=== PATIENT | female | born 1970 ===

== ENCOUNTER 2021-03-18 12:24 | Outpatient (REF) | payer SELFPAY ==
[2021-03-18 20:45] LABS: HCT 33.8 % (36.0-46.0); MCH 30.1 pg (27.0-33.0); MCHC 32.5 % (32.0-36.0); MCV 92.3 fL (80-95); Platelet Count 443 10^3/uL (130-400); RBC 3.66 10^6/uL (3.93-5.22); RDW 12.3 % (11.7-14.6); RDW-SD 41.9 fL; WBC 18.92 10^3/uL (4.4-10.8)
[2021-03-18 21:07] LABS: ALT 17 U/L (14-59); AST 12 U/L (15-37); Albumin 3.5 g/dL (3.4-5.0); Alkaline Phosphatase 56 U/L (46-116); Anion Gap 10.2 mmol/L (3-11); BUN 12 mg/dL (7-18); Bilirubin, Total 0.3 mg/dL (0.2-1.0); CO2 26.8 mmol/L (21.0-32.0); CREATININE 0.7 mg/dL (0.55-1.02); Calculated LDL 89 mg/dL (<100); Chloride 103 mmol/L (98-107); Cholesterol 162 mg/dL (<200); Glucose 94 mg/dL (74-106); HDL Cholesterol 58 mg/dL (40-60); Potassium 3.9 mmol/L (3.5-5.1); Sodium 140 mmol/L (136-145); TSH (W/Ref FT4) 0.98 uIU/mL (0.36-3.74); Total Protein 6.6 g/dL (6.4-8.2); Triglyceride 79 mg/dL (<150)
[2021-03-18 21:08] LABS: Hemoglobin A1C 5.2 % (<5.7)
[2021-03-19 11:47] LABS: Ferritin 52 ng/mL (8-252); Vitamin B12 251 pg/mL (193-986)
[2021-03-19 17:15] LABS: Folate 6.4 ng/mL (See Note)
== END 2021-03-18 12:25 | disposition home or self-care (01) ==
LOC: NCHCN 12:24
PROVIDERS: PCP Family Medicine; Visit Provider Nurse Practitioner Family
DX: E01.0 Iodine-deficiency related diffuse (endemic) goiter (principal); Z00.00 Encounter for general adult medical examination without abnormal findings; F41.8 Other specified anxiety disorders; E55.9 Vitamin D deficiency, unspecified
CPT/HCPCS: 80053; 80061; 82306; 85027; 82607; 82728; 82746; 83036; 84443